=== PATIENT | male | born 1995 | race American Indian/Alaskan Native ===

== ENCOUNTER 2020-08-11 17:18 | Emergency (ER) | payer MEDICAID ==
--- NOTE | 2020-08-11 18:22 | Emergency Department Report ---
ED General Adult HPI - General Chief complaint: Sickle Cell Crisis Stated complaint: SI PUI?: No Time Seen by Provider: 08/11/20 17:55 Source: patient, EMS ( EMS documentation not available at time of chart dictation ), RN notes reviewed Mode of arrival: Ambulatory Limitations: No Limitations - History of Present Illness Initial comments: The patient was evaluated in the emergency department for symptoms described in the history of present illness. He/she was evaluated in the context of the global COVID-19 pandemic, which necessitated consideration that the patient might be at risk for infection with the virus that causes COVID-19. Institutional protocols and algorithms that pertain to the evaluation of patients at risk for COVID-19 are in a state of rapid change based on information released by regulatory bodies including the CDC and federal and state organizations. These policies and algorithms were followed during the patient's care in the emergency department. Please note that these policies, procedures and recommendations changed on a rapid basis. Past medical history: Sickle cell crisis, history of splenectomy, history of depression, history of intermittent priapism Patient follows with hematology oncology, Dr. Genie Braden The patient is a 24-year-old gentleman. He has a history of sickle cell disease. He presents to the ER with a complaint of resolved depression, and resolved suicidality. Patient states he gets frequent sickle cell crises, and typically goes to [facility], or [facility]. The patient states that his chronic pain and chronic sickle cell state are depressing to him, and he has intermittently and over long-term period of time been depressed. This morning, he was feeling particularly depressed, and endorsed passive thoughts of self-harm. This is resolved. The patient is remorseful about this, and is insistent that he would not harm himself. He further states that he wishes he had pursued a more constructive outlets for his symptoms. He reports chronic intermittent priapism's, was seen by a urologist in 2016, and at that time, surgical intervention was not recommended. Patient is very frustrated with his chronic sickle cell pain, and chronic priapism's, neither of which are present at this time, and reports that he feels frustrated with the chronicity of his medical issues. At the moment, he denies headache, neck pain, chest pain, abdominal pain, shortness of breath, testicular pain, priapism, urinary symptoms. He reports that he had mild sickle cell discomfort this morning, which is now resolved. He is not experiencing hallucinations, and he also does not have access to guns or firearms, and he is also insistent that he would never overdose on anything. He cites his family as a good support structure, and reports "I have a lot to live for." -: week(s) Severity scale (0 -10): 0 Consistency: intermittent Improves with: other Worsens with: other Associated Symptoms: other Treatments Prior to Arrival: other - Related Data Home Medications Medication Instructions Recorded Confirmed Last Taken Finasteride 10 mg PO QHS 08/11/20 08/11/20 1 Day Ago ~08/10/20 Folic Acid [Folvite] 1 mg PO DAILY 08/11/20 08/11/20 1 Day Ago ~08/10/20 Morphine ER [Ms Contin ER] 30 mg PO BID 08/11/20 08/11/20 1 Day Ago ~08/10/20 Allergies Allergy/AdvReac Type Severity Reaction Status Date / Time Penicillins Allergy Rash Unverified 07/17/13 16:53 ED Review of Systems ROS: Stated complaint: SI Other details as noted in HPI Constitutional: denies: fever Eyes: denies: eye discharge ENT: denies: epistaxis Respiratory: denies: cough Cardiovascular: denies: chest pain Gastrointestinal: denies: abdominal pain Genitourinary: as per HPI. denies: urgency, dysuria Musculoskeletal: arthralgia, myalgia Neurological: denies: weakness Psychiatric: anxiety, depression. denies: auditory hallucinations, visual hallucinations, homicidal thoughts ED Past Medical Hx - Past Medical History Previous Medical History?: Yes Hx Psychiatric Treatment: (depression) Additional medical history: sickle cell - Social History Smoking Status: Never Smoker Substance Use Type: None, Alcohol - Medications Home Medications: Home Medications Medication Instructions Recorded Confirmed Last Taken Type Finasteride 10 mg PO QHS 08/11/20 08/11/20 1 Day Ago History ~08/10/20 Folic Acid [Folvite] 1 mg PO DAILY 08/11/20 08/11/20 1 Day Ago History ~08/10/20 Morphine ER [Ms Contin ER] 30 mg PO BID 08/11/20 08/11/20 1 Day Ago History ~08/10/20 ED Physical Exam - General Limitations: No Limitations General appearance: alert, anxious - Head Head exam: Present: atraumatic, normocephalic - Eye Eye exam: Present: normal appearance, EOMI. Absent: nystagmus - ENT ENT exam: Present: normal exam, normal orophraynx, mucous membranes moist, normal external ear exam - Neck Neck exam: Present: normal inspection, full ROM. Absent: tenderness, meningismus - Respiratory Respiratory exam: Present: normal lung sounds bilaterally. Absent: respiratory distress, wheezes, rales, rhonchi, stridor, decreased breath sounds - Cardiovascular Cardiovascular Exam: Present: regular rate, normal rhythm, normal heart sounds. Absent: bradycardia, tachycardia, irregular rhythm, systolic murmur, diastolic murmur, rubs, gallop - GI/Abdominal GI/Abdominal exam: Present: soft, normal bowel sounds. Absent: distended, tenderness, guarding, rebound, rigid, pulsatile mass - Rectal Rectal exam: Present: deferred - Extremities Exam Extremities exam: Present: normal inspection, full ROM, other (2+ pulses noted in the bilateral upper and lower extremities. There is no palpable cord. negative Homans sign. Muscular compartments are soft. The pelvis is stable.). Absent: pedal edema, calf tenderness - Back Exam Back exam: Present: normal inspection, full ROM. Absent: tenderness, CVA tender ness (R), CVA tenderness (L), paraspinal tenderness, vertebral tenderness - Neurological Exam Neurological exam: Present: alert, oriented X3, normal gait, other (No facial droop. Tongue midline. Extraocular movements intact bilaterally. Facial sensation intact to light touch in V1, V2, V3 distribution bilaterally. 5 and a 5 strength in 4 extremities. Sensation intact to light touch in 4 extremities.). Absent: motor sensory deficit - Psychiatric Psychiatric exam: Present: anxious. Absent: homicidal ideation, suicidal ideation - Skin Skin exam: Present: warm, dry, intact, normal color. Absent: rash ED Course Vital Signs 08/11/20 08/11/20 17:26 17:37 Temperature 98.2 F 98.2 F Pulse Rate 88 88 Respiratory 18 18 Rate Blood Pressure 136/77 Blood Pressure 136/77 [Right] O2 Sat by Pulse 96 96 Oximetry ED Medical Decision Making - Lab Data Result diagrams: 08/11/20 18:37 08/11/20 18:37 Vital Signs 08/11/20 08/11/20 17:26 17:37 Temperature 98.2 F 98.2 F Pulse Rate 88 88 Respiratory 18 18 Rate Blood Pressure 136/77 Blood Pressure 136/77 [Right] O2 Sat by Pulse 96 96 Oximetry Vital Signs 08/11/20 08/11/20 17:26 17:37 Temperature 98.2 F 98.2 F Pulse Rate 88 88 Respiratory 18 18 Rate Blood Pressure 136/77 Blood Pressure 136/77 [Right] O2 Sat by Pulse 96 96 Oximetry Lab Results 08/11/20 08/11/20 08/11/20 Range/Units 18:37 18:37 18:37 WBC (4.5-11.0) K/mm3 RBC (3.65-5.03) M/mm3 Hgb (11.8-15.2) gm/dl Hct (35.5-45.6) % MCV (84-94) fl MCH (28-32) pg MCHC (32-34) % RDW (13.2-15.2) % Plt Count (140-440) K/mm3 Lymph % (Auto) (13.4-35.0) % [place] % (Auto) (0.0-7.3) % Eos % (Auto) (0.0-4.3) % Baso % (Auto) (0.0-1.8) % Lymph # (Auto) (1.2-5.4) K/mm3 [place] # (Auto) (0.0-0.8) K/mm3 Eos # (Auto) (0.0-0.4) K/mm3 Baso # (Auto) (0.0-0.1) K/mm3 Seg Neutrophils % (40.0-70.0) % Seg Neutrophils # (1.8-7.7) K/mm3 Sodium 141 (137-145) mmol/L Potassium 4.8 (3.6-5.0) mmol/L Chloride 106.4 (98-107) mmol/L Carbon Dioxide 23 (22-30) mmol/L Anion Gap 16 mmol/L BUN 10 (9-20) mg/dL Creatinine 0.7 L (0.8-1.3) mg/dL Estimated GFR > 60 ml/min BUN/Creatinine Ratio 14 % Glucose 100 (75-100) mg/dL Calcium 9.4 (8.4-10.2) mg/dL Urine Color (Yellow) Urine Turbidity (Clear) Urine pH (5.0-7.0) Ur Specific [place] (1.003-1.030) Urine Protein (Negative) mg/dL Urine Glucose (UA) (Negative) mg/dL Urine Ketones (Negative) mg/dL Urine Blood (Negative) Urine Nitrite (Negative) Urine Bilirubin (Negative) Urine Urobilinogen (<2.0) mg/dL Ur Leukocyte Esterase (Negative) Urine WBC (Auto) (0.0-6.0) /HPF Urine RBC (Auto) (0.0-6.0) /HPF U Epithel Cells (Auto) (0-13.0) /HPF Urine Bacteria (Auto) (Negative) /HPF Salicylates < 0.3 L (2.8-20.0) mg/dL Urine Opiates Screen Urine Methadone Screen Acetaminophen 5.0 L (10.0-30.0) ug/mL Ur Barbiturates Screen Ur Phencyclidine Scrn Ur Amphetamines Screen U Benzodiazepines Scrn Urine Cocaine Screen U Marijuana (THC) Screen Drugs of Abuse Note Plasma/Serum Alcohol (0-0.07) % 08/11/20 08/11/20 08/11/20 Range/Units 18:37 18:37 18:43 WBC 18.2 H (4.5-11.0) K/mm3 RBC 2.68 L (3.65-5.03) M/mm3 Hgb 9.4 L (11.8-15.2) gm/dl Hct 24.8 L (35.5-45.6) % MCV 93 (84-94) fl MCH 35 H (28-32) pg MCHC 38 H* (32-34) % RDW 23.9 H (13.2-15.2) % Plt Count 333 (140-440) K/mm3 Lymph % (Auto) 22.9 (13.4-35.0) % [place] % (Auto) 12.7 H (0.0-7.3) % Eos % (Auto) 2.6 (0.0-4.3) % Baso % (Auto) 1.2 (0.0-1.8) % Lymph # (Auto) 4.2 (1.2-5.4) K/mm3 [place] # (Auto) 2.3 H (0.0-0.8) K/mm3 Eos # (Auto) 0.5 H (0.0-0.4) K/mm3 Baso # (Auto) 0.2 H (0.0-0.1) K/mm3 Seg Neutrophils % 60.6 (40.0-70.0) % Seg Neutrophils # 11.1 H (1.8-7.7) K/mm3 Sodium (137-145) mmol/L Potassium (3.6-5.0) mmol/L Chloride (98-107) mmol/L Carbon Dioxide (22-30) mmol/L Anion Gap mmol/L BUN (9-20) mg/dL Creatinine (0.8-1.3) mg/dL Estimated GFR ml/min BUN/Creatinine Ratio % Glucose (75-100) mg/dL Calcium (8.4-10.2) mg/dL Urine Color Yellow (Yellow) Urine Turbidity Clear (Clear) Urine pH 7.0 (5.0-7.0) Ur Specific [place] 1.013 (1.003-1.030) Urine Protein <15 mg/dl (Negative) mg/dL Urine Glucose (UA) Neg (Negative) mg/dL Urine Ketones Neg (Negative) mg/dL Urine Blood Neg (Negative) Urine Nitrite Neg (Negative) Urine Bilirubin Neg (Negative) Urine Urobilinogen 4.0 (<2.0) mg/dL Ur Leukocyte Esterase Tr (Negative) Urine WBC (Auto) 2.0 (0.0-6.0) /HPF Urine RBC (Auto) 1.0 (0.0-6.0) /HPF U Epithel Cells (Auto) 5.0 (0-13.0) /HPF Urine Bacteria (Auto) 1+ (Negative) /HPF Salicylates (2.8-20.0) mg/dL Urine Opiates Screen Urine Methadone Screen Acetaminophen (10.0-30.0) ug/mL Ur Barbiturates Screen Ur Phencyclidine Scrn Ur Amphetamines Screen U Benzodiazepines Scrn Urine Cocaine Screen U Marijuana (THC) Screen Drugs of Abuse Note Plasma/Serum Alcohol < 0.01 (0-0.07) % 08/11/20 Range/Units 18:43 WBC (4.5-11.0) K/mm3 RBC (3.65-5.03) M/mm3 Hgb (11.8-15.2) gm/dl Hct (35.5-45.6) % MCV (84-94) fl MCH (28-32) pg MCHC (32-34) % RDW (13.2-15.2) % Plt Count (140-440) K/mm3 Lymph % (Auto) (13.4-35.0) % [place] % (Auto) (0.0-7.3) % Eos % (Auto) (0.0-4.3) % Baso % (Auto) (0.0-1.8) % Lymph # (Auto) (1.2-5.4) K/mm3 [place] # (Auto) (0.0-0.8) K/mm3 Eos # (Auto) (0.0-0.4) K/mm3 Baso # (Auto) (0.0-0.1) K/mm3 Seg Neutrophils % (40.0-70.0) % Seg Neutrophils # (1.8-7.7) K/mm3 Sodium (137-145) mmol/L Potassium (3.6-5.0) mmol/L Chloride (98-107) mmol/L Carbon Dioxide (22-30) mmol/L Anion Gap mmol/L BUN (9-20) mg/dL Creatinine (0.8-1.3) mg/dL Estimated GFR ml/min BUN/Creatinine Ratio % Glucose (75-100) mg/dL Calcium (8.4-10.2) mg/dL Urine Color (Yellow) Urine Turbidity (Clear) Urine pH (5.0-7.0) Ur Specific [place] (1.003-1.030) Urine Protein (Negative) mg/dL Urine Glucose (UA) (Negative) mg/dL Urine Ketones (Negative) mg/dL Urine Blood (Negative) Urine Nitrite (Negative) Urine Bilirubin (Negative) Urine Urobilinogen (<2.0) mg/dL Ur Leukocyte Esterase (Negative) Urine WBC (Auto) (0.0-6.0) /HPF Urine RBC (Auto) (0.0-6.0) /HPF U Epithel Cells (Auto) (0-13.0) /HPF Urine Bacteria (Auto) (Negative) /HPF Salicylates (2.8-20.0) mg/dL Urine Opiates Screen Presumptive negative Urine Methadone Screen Presumptive negative Acetaminophen (10.0-30.0) ug/mL Ur Barbiturates Screen Presumptive negative Ur Phencyclidine Scrn Presumptive negative Ur Amphetamines Screen Presumptive negative U Benzodiazepines Scrn Presumptive negative Urine Cocaine Screen Presumptive negative U Marijuana (THC) Screen Presumptive negative Drugs of Abuse Note Disclamer Plasma/Serum Alcohol (0-0.07) % Vital Signs 08/11/20 08/11/20 17:26 17:37 Temperature 98.2 F 98.2 F Pulse Rate 88 88 Respiratory 18 18 Rate Blood Pressure 136/77 Blood Pressure 136/77 [Right] O2 Sat by Pulse 96 96 Oximetry - Medical Decision Making Differential diagnosis, including but not limited to: Sickle cell disease, depression, dysthymia, intermittent priapism, general medical evaluation Assessment and plan: 24-year-old gentleman, who was afebrile, with reassuring vital signs, who is clinically sober, who states he does not feel like he is currently in crisis at the moment, who presents as alert, oriented, sober, lucid with decision-making capacity and ability. He is not in an acute crisis that would incapacitate him psychiatrically. He states he is not homicidal or suicidal at this time. His sickle cell disease is a chronic medical condition, which will not be cured and improved by involuntary psychiatric hospitalization or 1013 status. Patient and I had an extensive discussion regarding need for outpatient follow-up with his mission manager and outpatient urologist to optimize his intermittent priapism's, as well as his chronic sickle chronic pain. The patient is also seen and evaluated by my colleague, Ms. No Lucia Of the psychiatric team, who agreed that the patient does not meet criteria for psychiatric hospitalization, or involuntary hold. The patient is motivated to follow-up as an outpatient, and states he will he will do so. Leukocytosis is likely stress reaction, and may be chronic secondary to the patient's underlying sickle cell crises. Anemia also likely chronic secondary to underlying sickle cell Critical care attestation.: If time is entered above; I have spent that time in minutes in the direct care of this critically ill patient, excluding procedure time. ED Disposition Clinical Impression: Sickle cell anemia, History of priapism, Dysthymia, General medical exam Disposition: TO HOME OR SELFCARE Is pt being admited?: No Does the pt Need Aspirin: No Condition: Stable Additional Instructions: Please continue current outpatient medications. Please follow-up with the outpatient psychiatric resources that were provided to the patient. Please follow-up with your outpatient mission manager within the next week. Please follow-up with an outpatient urologist within the next week. Please return to the emergency room right away with new pain, worsening pain, migration of pain, projectile vomiting, change in mental status, confusion, inability to tolerate liquid feeds, new, worsened or different symptoms not present on the initial emergency room evaluation. Referrals: GENIE BRADEN MD [Referring] - 3-5 Days CARLY RODRIGUEZ MD [Staff Physician] - 3-5 Days
[2020-08-11 19:08] LABS: Basophils # (Auto) 0.2 K/mm3 (0.0-0.1); Basophils % (Auto) 1.2 % (0.0-1.8); Eosinophils # (Auto) 0.5 K/mm3 (0.0-0.4); Eosinophils % (Auto) 2.6 % (0.0-4.3); Lymphocytes # (Auto) 4.2 K/mm3 (1.2-5.4); Lymphocytes % (Auto) 22.9 % (13.4-35.0); Mean Corpuscular Volume 93 fl (84-94); Monocytes # (Auto) 2.3 K/mm3 (0.0-0.8); Monocytes % (Auto) 12.7 % (0.0-7.3); Platelet Count 333 K/mm3 (140-440); Red Blood Count 2.68 M/mm3 (3.65-5.03)
[2020-08-11 19:12] LABS: Blood Urea Nitrogen 10 mg/dL (9-20); Calcium 9.4 mg/dL (8.4-10.2); Hemolysis Index 37
[2020-08-11 19:14] LABS: Bacteria,Urine 1+ /HPF (Negative); Bilirubin,Urine NEG (Negative); Blood,Urine NEG (Negative); Color,Urine Yellow (Yellow); Protein,Urine <15 mg/dL mg/dL (Negative)
[2020-08-11 19:20] LABS: Amphetamine Screen,Urine PRESUMPTIVE NEGATIVE; Benzodiazepines Screen,Urine PRESUMPTIVE NEGATIVE; Cannabinoid Screen,Urine PRESUMPTIVE NEGATIVE; Cocaine Screen,Urine PRESUMPTIVE NEGATIVE; Methadone Screen,Urine PRESUMPTIVE NEGATIVE; Opiate Screen,Urine PRESUMPTIVE NEGATIVE
[2020-08-11 19:23] LABS: BUN/Creatinine Ratio 14
[2020-08-11 19:30] LABS: Hematocrit 24.8 % (35.5-45.6); Hemoglobin 9.4 gm/dl (11.8-15.2)
[2020-08-11 19:31] LABS: Red Cell Distribution Width 23.9 % (13.2-15.2)
[2020-08-11 19:33] LABS: Mean Corpuscular HGB Conc 38 % (32-34)
[2020-08-11 20:17] VITALS: BP 126/78
== END 2020-08-11 20:25 | disposition home or self-care (01) ==
LOC: ED 17:18
DX: D57.1 Sickle-cell disease without crisis (principal); F34.1 Dysthymic disorder; N48.30 Priapism, unspecified; F32.9 Major depressive disorder, single episode, unspecified; Z00.00 Encounter for general adult medical examination without abnormal findings; Z79.899 Other long term (current) drug therapy; Z88.0 Allergy status to penicillin
CPT/HCPCS: 36415; 80048; 80307; 80320; 81001; 85025; G0480